=== PATIENT | female | born 1985 | race African-American/Black ===

== ENCOUNTER 2016-06-29 21:41 | Emergency (ER) | payer MEDICAID, OTHER ==
[~2016-06-29] VITALS: Ht 165.1 cm; Wt 72.6 kg
[~2016-06-29 21:41] MED LIST: ASPIR 8181 MG ORAL; BACLOFEN10 MG ORAL; BACTRIM-DS1 EA ORAL; BENADRYL25 MG PO; BENADRYL50 MG PO; CEPHALEXIN500 MG ORAL; CILOXAN3.5 GM OP; CIPRO500 MG PO; CORTISPORIN EAR10 M1 RIGHT EAR; CYCLOBENZAPRINE10 MG ORAL; FLOXIN OTIC10 DROP OT; HYDROCHLOROTH12.5 M2 ORAL; IBUPROFEN600 MG ORAL; IBUPROFEN800 MG ORAL; KEFLEX500 MG PO; NIFEDICAL XL30 MG PO; NORCO 5-325 TA1 EACH ORAL; PERCOCET 5-3251 EACH ORAL; PREDNISONE20 MG ORAL; PREDNISONE20 MG PO; PROCARDIA10 MG PO; QVAR 80MCG ORA1 PUFF INH; RANITIDINE HCL150 MG ORAL; RANITIDINE HCL150 MG PO; TRAMADOL HCL50 MG ORAL; VALIUM5 MG ORAL; VICODIN 5-5001 EACH PO
[2016-06-29] MEDS ORDERED: PERMETHRIN60 GM TOPIC (22:29)
[2016-06-29] MEDS ORDERED: HYDROCODON-ACE1 EA15 ORAL (22:29)
--- NOTE | 2016-06-29 22:30 | Emergency Room Report ---
History of Present Illness General Chief Complaint: Lower Back Pain or Injury Source: Patient Present Illness HPI This is a 31-year-old female who presents with 2 chief complaints. Her first complaint is back pain. This is a chronic problem. She currently taking ibuprofen for. She R. he has an MRI which showed spinal stenosis. She is awaiting authorization to see a specialist. Pain in her back as 8/10. No radiation. No incontinence of bowel or urine. No fever or chills. No trauma. Her second complaint is itching and rash. Worse at night. Localized to the upper back and upper chest and upper arm area. Been ongoing for last 2 weeks. She works as a home health care. [id number] medication including not helping. No new medicine. Allergies: Coded Allergies: No Known Allergies (Unverified , 04/06/12) Patient History Past Medical History: see triage record, old chart reviewed Past Surgical History: none Pertinent Family History: none Social History: Denies: smoking Last Menstrual Period: 06/13/16 Now: No Immunizations: other Reviewed Nursing Documentation: PMH: Agreed, PSxH: Agreed Nursing Documentation-PMH Hx Cardiac Problems: No Hx Hypertension: Yes Hx Pacemaker: No Hx Asthma: Yes Hx COPD: No Hx Diabetes: No Hx Cancer: No Hx Gastrointestinal Problems: No Hx Dialysis: No Hx Neurological Problems: No Hx Cerebrovascular Accident: No Hx Seizures: No Review of Systems Eye: Denies: blurred vision, eye pain ENT: Denies: ear pain, nose congestion, throat swelling Respiratory: Denies: cough, shortness of breath Cardiovascular: Denies: chest pain, palpitations Gastrointestinal: Denies: abdominal pain, diarrhea, nausea, vomiting Musculoskeletal: Reports: back pain, Denies: joint pain Skin: Reports: rash Neurological: Denies: headache, numbness Endocrine: Denies: increased thirst, increased urine Hematologic/Lymphatic: Denies: easy bruising All Other Systems: negative except mentioned in HPI Physical Exam Vital Signs Date Time Temp Pulse Resp B/P Pulse Ox O2 Delivery O2 Flow Rate FiO2 06/29/16 22:03 98.6 88 16 119/84 97 Room Air vitals heather Sp02 EP Interpretation: reviewed, normal General Appearance: well appearing, no apparent distress, alert Head: normocephalic, atraumatic Eyes: bilateral eye EOMI, bilateral eye PERRL ENT: hearing grossly normal, normal pharynx Neck: full range of motion, supple, no meningismus Respiratory: chest non-tender, lungs clear, normal breath sounds Cardiovascular #1: regular rate, rhythm, no murmur Gastrointestinal: normal bowel sounds, non tender, no mass, no organomegaly, no bruit, non-distended Musculoskeletal: back normal, gait/station normal, normal range of motion Neurologic: alert, oriented x3 Psychiatric: mood/affect normal Skin: warm/dry, rash - She has scattered prickly rash to back. no infection. Medical Decision Making Diagnostic Impression: Primary Impression: Back pain Qualified Codes: M54.5 - Low back pain Additional Impression: Dermatitis ER Course Patient with exacerbation of chronic lower back pain. No evidence of cauda equina syndrome, spinal epidural abscess, or neoplastic process. Or rash may be secondary to scabies, bedbugs, contact dermatitis name a few. No evidence of infection. We'll discharge home. Last Vital Signs Date Time Temp Pulse Resp B/P Pulse Ox O2 Delivery O2 Flow Rate FiO2 06/29/16 22:03 98.6 88 16 119/84 97 Room Air Status: improved Disposition: HOME, SELF-CARE Condition: Stable Scripts Permethrin* (ELIMITE*) 60 Gm Cream..g. 1 APPLIC TOPIC ONCE, #60 GM 0 Refills Apply cream from head to toe; leave on for 8-14 hours before washing off with water; may reapply in 1 week if live mites appear. Prov: SHASHI HYATT M.D. 06/29/16 Hydrocodone/Acetaminophen 5-325* (HYDROCODONE/ACETAMINOPHEN 5-325*) 1 Each Tablet 1 TAB ORAL Q6H Y for For Pain, #30 TAB 0 Refills Prov: SHASHI HYATT M.D. 06/29/16 Additional Instructions: Followup with your DrClara in 7 days. Return for increasing pain, fever, chills, or any concern. SHASHI HYATT M.D. Jun 29, 2016 22:30
[2016-06-29 22:49] VITALS: BP 119/84
== END 2016-06-29 22:50 | disposition home or self-care (01) ==
LOC: EMR 22:19
DX: M54.5 Low back pain (principal); L30.9 Dermatitis, unspecified; J45.909 Unspecified asthma, uncomplicated; I10 Essential (primary) hypertension
CPT/HCPCS: 99282

== ENCOUNTER 2016-08-06 15:42 | Emergency (ER) | payer OTHER ==
[~2016-08-06] VITALS: Ht 165.1 cm; Wt 83.5 kg
[~2016-08-06 15:42] MED LIST changes: +HYDROCODON-ACE1 EA15 ORAL; +PERMETHRIN60 GM TOPIC
[2016-08-06 16:06] VITALS: BP 119/86
--- NOTE | 2016-08-06 16:08 | Emergency Room Report ---
History of Present Illness General Chief Complaint: Skin Rash/Abscess Source: Patient Present Illness HPI The patient is a 31-year-old female presenting for total body itching. The patient was seen in this emergency department one month prior and treated with permethrin which the patient states did not help. Patient then saw her primary care doctor yesterday who also prescribed permethrin and the patient states that the symptoms are continuing. Patient describes itching of the arms, legs, chest, and back. The patient states that there are others that live in her house who do not have the symptoms. The patient did not do a deep cleaning of her house. Allergies: Coded Allergies: No Known Allergies (Unverified , 04/06/12) Patient History Past Medical History: see triage record Pertinent Family History: none Last Menstrual Period: 07/08/16 Reviewed Nursing Documentation: PMH: Agreed, PSxH: Agreed Nursing Documentation-PMH Past Medical History: No History, Except For Hx Cardiac Problems: No Hx Hypertension: Yes Hx Pacemaker: No Hx Asthma: Yes Hx COPD: No Hx Diabetes: No Hx Cancer: No Hx Gastrointestinal Problems: No Hx Dialysis: No Hx Neurological Problems: No Hx Cerebrovascular Accident: No Hx Seizures: No Review of Systems All Other Systems: negative except mentioned in HPI Physical Exam Vital Signs Date Time Temp Pulse Resp B/P Pulse Ox O2 Delivery O2 Flow Rate FiO2 08/06/16 15:59 98.6 92 14 123/91 95 Room Air Sp02 EP Interpretation: reviewed, normal General Appearance: no apparent distress, alert, GCS 15, non-toxic Head: normocephalic, atraumatic Eyes: bilateral eye PERRL, bilateral eye normal inspection ENT: hearing grossly normal, normal pharynx, no angioedema, normal voice Neck: full range of motion, supple/symm/no masses Respiratory: chest non-tender, lungs clear, normal breath sounds, speaking full sentences Cardiovascular #1: regular rate, rhythm, no edema Musculoskeletal: back normal, gait/station normal, normal range of motion, non- tender Neurologic: alert, oriented x3, responsive, motor strength/tone normal, sensory intact, speech normal Psychiatric: normal inspection Skin: normal color, warm/dry, well hydrated, rash - There are scattered erythematous papules of bilateral arms, abdomen, back, and legs. No burrowing. No lesions in the web spaces. Nontender Lymphatic: no adenopathy Medical Decision Making PA Attestation Dr. Orosco is my supervising physician. Patient management was discussed with my supervising physician Diagnostic Impression: Primary Impression: Bedbug bite ER Course The patient is a 30-year-old female presenting with total body itching Ddx considered include but not limited to insect bite, contact dermatitis, eczema, cellulitis PE: vitals WNL. NAD There are scattered erythematous papules of bilateral arms, abdomen, back, and legs. No burrowing. No lesions in the web spaces. Nontender. The patient is given Benadryl IM with good relief of itching The patient has one refill of permethrin from her PMD and states that a referral for dermatology is pending. The patient to be discharged home with a prescription for Keflex and Benadryl Last Vital Signs Date Time Temp Pulse Resp B/P Pulse Ox O2 Delivery O2 Flow Rate FiO2 08/06/16 16:06 98.1 79 14 119/86 98 Room Air Status: improved Disposition: HOME, SELF-CARE Condition: Improved Scripts Cephalexin* (KEFLEX*) 500 Mg Capsule 500 MG ORAL EVERY 12 HOURS, #14 CAP 0 Refills Prov: TERRAUDELAN,DESIREE P.A. 08/06/16 Diphenhydramine HCl (Benadryl) 25 Mg Capsule 25 MG PO Q6HR, #20 CAP Prov: TERZIAN,DESIREE P.A. 08/06/16 SAIMAZIAN,DESIREE P.A. Aug 06, 2016 16:08
[2016-08-06] MEDS ORDERED: DiphenhydrAMINE 50mg/ml Inj IM ONE (16:15)
[2016-08-06] MEDS ORDERED: BENADRYL25 M3 PO (16:36)
[2016-08-06] MEDS ORDERED: CEPHALEXIN500 MG ORAL (16:36)
[2016-08-06 16:40] VITALS: BP 119/86
== END 2016-08-06 16:40 | disposition home or self-care (01) ==
LOC: EMR 16:08
DX: S40.862A Insect bite (nonvenomous) of left upper arm, initial encounter (principal); S40.861A Insect bite (nonvenomous) of right upper arm, initial encounter; S30.861A Insect bite (nonvenomous) of abdominal wall, initial encounter; S30.860A Insect bite (nonvenomous) of lower back and pelvis, initial encounter; S80.869A Insect bite (nonvenomous), unspecified lower leg, initial encounter; W57.XXXA Bitten or stung by nonvenomous insect and other nonvenomous arthropods, initial encounter; Y92.9 Unspecified place or not applicable; J45.909 Unspecified asthma, uncomplicated; I10 Essential (primary) hypertension
CPT/HCPCS: 96372; 99284; J1200

== ENCOUNTER 2016-10-17 17:43 | Emergency (ER) | payer OTHER ==
[~2016-10-17] VITALS: Ht 165.1 cm; Wt 78.9 kg
[~2016-10-17 17:43] MED LIST changes: +BENADRYL25 M3 PO
[2016-10-17] MEDS ORDERED: Ketorolac 60mg Inj IM ONE (18:15)
[2016-10-17 18:25] LABS: APPEARANCE,URINE SLIGHTLY CLOUDY; KETONES,URINE 2+ (NEGATIVE); LEUKOCYTE ESTERASE ,URINE 3+ (NEGATIVE); NITRITE,URINE NEGATIVE (NEGATIVE); PH,URINE 7 (4.5-8.0); PROTEIN,URINE NEGATIVE (NEGATIVE); UROBILINOGEN,URINE NORMAL MG/DL (0.0-1.0)
[2016-10-17 18:33] LABS: BACTERIA,URINE MODERATE /HPF; SQUAMOUS EPITHELIAL CELL,UR MANY /LPF (NONE/OCC); TRICHOMONAS,URINE OCCASIONAL /HPF
[2016-10-17] MEDS ORDERED: BENTYL10 MG ORAL (18:41)
[2016-10-17] MEDS ORDERED: KEFLEX500 MG ORAL (18:43)
[2016-10-17] MEDS ORDERED: Cephalexin 500mg cap ORAL ONE (18:45)
[2016-10-17 18:55] VITALS: BP 145/96
[2016-10-17 18:57] VITALS: BP 145/96
--- NOTE | 2016-10-17 20:11 | Emergency Room Report ---
History of Present Illness General Chief Complaint: Abdominal Pain Source: Patient Present Illness HPI Patient 31-year-old female who presented after increased lower abdominal pain patient was noted to have gradual onset of symptoms. She reported having increased pain since approximately one month ago. This reported having increased pain with her menses. She had not been vomiting. She had no diarrhea. She denied any vaginal discharge. Allergies: Coded Allergies: No Known Allergies (Unverified , 04/06/12) Patient History Past Medical History: see triage record Last Menstrual Period: 09/30/16 Reviewed Nursing Documentation: PMH: Agreed, PSxH: Agreed Nursing Documentation-PMH Past Medical History: No History, Except For Hx Cardiac Problems: No Hx Hypertension: Yes Hx Pacemaker: No Hx Asthma: Yes Hx COPD: No Hx Diabetes: No Hx Cancer: No Hx Gastrointestinal Problems: No Hx Dialysis: No Hx Neurological Problems: No Hx Cerebrovascular Accident: No Hx Seizures: No Review of Systems All Other Systems: negative except mentioned in HPI Physical Exam Vital Signs Date Time Temp Pulse Resp B/P Pulse Ox O2 Delivery O2 Flow Rate FiO2 10/17/16 17:48 98.1 78 16 167/115 100 Room Air General Appearance: well appearing, no apparent distress, alert, GCS 15 Head: normocephalic, atraumatic ENT: hearing grossly normal, normal voice Neck: full range of motion, supple Respiratory: no respiratory distress, speaking full sentences Cardiovascular #1: normal inspection Gastrointestinal: normal inspection, normal bowel sounds, non tender, soft, no mass Musculoskeletal: normal inspection, no calf tenderness Neurologic: normal inspection, alert, responsive, normal gait Psychiatric: mood/affect normal Skin: no rash Medical Decision Making Diagnostic Impression: Primary Impression: UTI (lower urinary tract infection) ER Course Patient presented for abdominal pain. Differential diagnoses included ischemic bowel, appendicitis, perforated viscus, abdominal aortic aneurysm, inferior myocardial infarction, viral gastroenteritis Patient's benign exam and does not appear to require any further imaging or laboratory testing at this time. I urinalysis showed evidence of urinary tract infection. Patient was noted to have no evidence of . Patient was given prescription for antibiotics.The patient is advised to follow up with primary care doctor in 1-2 days. Patient is advised to return if any worsening condition or if any changes in status that are concerning. Labs Test 10/17/16 14:13 Urine Color Pale yellow Urine Appearance Slightly cloudy Urine pH 7 (4.5-8.0) Urine Specific [place] 1.010 (1.005-1.035) Urine Protein Negative (NEGATIVE) Urine Glucose (UA) Negative (NEGATIVE) Urine Ketones 2+ (NEGATIVE) Urine Occult Blood 1+ (NEGATIVE) Urine Nitrite Negative (NEGATIVE) Urine Bilirubin Negative (NEGATIVE) Urine Urobilinogen Normal MG/DL (0.0-1.0) Urine Leukocyte Esterase 3+ (NEGATIVE) Urine RBC 2-4 /HPF (0 - 2) Urine WBC 5-10 /HPF (0 - 2) Urine Squamous Epithelial Cells Many /LPF (NONE/OCC) Urine Bacteria Moderate /HPF (NONE) Urine Trichomonas Occasional /HPF (NONE) Urine HCG, Qualitative Negative Urine Opiates Screen Negative (NEGATIVE) Urine Barbiturates Screen Negative (NEGATIVE) Phencyclidine (PCP) Screen Negative (NEGATIVE) Urine Amphetamines Screen Negative (NEGATIVE) Urine Benzodiazepines Screen Negative (NEGATIVE) Urine Cocaine Screen Negative (NEGATIVE) Urine Marijuana (THC) Screen Positive (NEGATIVE) Last Vital Signs Date Time Temp Pulse Resp B/P Pulse Ox O2 Delivery O2 Flow Rate FiO2 10/17/16 18:57 98.3 74 18 145/96 98 Room Air Disposition: HOME, SELF-CARE Condition: Stable Scripts Cephalexin* (KEFLEX*) 500 Mg Capsule 500 MG ORAL Q6H, #28 CAP 0 Refills Prov: Immanuel Corrigan 10/17/16 Dicyclomine Hcl* (BENTYL*) 10 Mg Capsule 10 MG ORAL FOUR TIMES A DAY, #20 CAP Prov: Immanuel Corrigan 10/17/16 Referrals: [facility],REFERRING (PCP) Patient Instructions: Urinary Tract Infection, Abdominal Pain, Adult Immanuel Corrigan October 17, 2016 20:11
== END 2016-10-17 18:57 | disposition home or self-care (01) ==
LOC: EMR 18:12
DX: N39.0 Urinary tract infection, site not specified (principal); I10 Essential (primary) hypertension; J45.909 Unspecified asthma, uncomplicated
CPT/HCPCS: 80300; 81003; 81025; 87086; 96372; 99284

== ENCOUNTER 2016-10-23 02:27 | Emergency (ER) | payer OTHER ==
[~2016-10-23] VITALS: Ht 165.1 cm; Wt 78.9 kg
[~2016-10-23 02:27] MED LIST changes: +BENTYL10 MG ORAL; +KEFLEX500 MG ORAL
[2016-10-23 02:35] VITALS: BP 130/74
[2016-10-23] MEDS ORDERED: HYDROmorphone 1mg/ml Carpuject IM ONE (03:00)
[2016-10-23] MEDS ORDERED: HYDROCODON-ACE1 EA15 ORAL (03:07)
[2016-10-23] MEDS ORDERED: IBUPROFEN600 MG ORAL (03:07)
--- NOTE | 2016-10-23 03:08 | Emergency Room Report ---
History of Present Illness General Chief Complaint: Back Pain-No Injury Source: Patient, Medical Record Present Illness HPI Is a 31-year-old female with history of back pain. She has an MRI that showed stenosis. She seen a pain specialist and his prescribe oral medication and Lidoderm patches. Those are not helping. She presents with acute exacerbation of her back pain. Onset yesterday. Worse tonight. Said is very stiff. Worse with movement. Pain is 8/10. No incontinence of urine or bowel no trauma. No fever or chills. No anesthesia. Allergies: Coded Allergies: No Known Allergies (Unverified , 04/06/12) Patient History Past Medical History: see triage record, old chart reviewed Past Surgical History: other Pertinent Family History: none Social History: Denies: smoking Last Menstrual Period: last month Now: No Immunizations: other Reviewed Nursing Documentation: PMH: Agreed, PSxH: Agreed Nursing Documentation-PMH Hx Cardiac Problems: No Hx Hypertension: Yes Hx Pacemaker: No Hx Asthma: Yes Hx COPD: No Hx Diabetes: No Hx Cancer: No Hx Gastrointestinal Problems: No Hx Dialysis: No Hx Neurological Problems: Yes - PINCHED NERVE Hx Cerebrovascular Accident: No Hx Seizures: No Review of Systems Eye: Denies: blurred vision, eye pain ENT: Denies: ear pain, nose congestion, throat swelling Respiratory: Denies: cough, shortness of breath Cardiovascular: Denies: chest pain, palpitations Gastrointestinal: Denies: abdominal pain, diarrhea, nausea, vomiting Musculoskeletal: Reports: back pain, Denies: joint pain Skin: Denies: rash Neurological: Denies: headache, numbness Endocrine: Denies: increased thirst, increased urine Hematologic/Lymphatic: Denies: easy bruising All Other Systems: negative except mentioned in HPI Physical Exam Vital Signs Date Time Temp Pulse Resp B/P Pulse Ox O2 Delivery O2 Flow Rate FiO2 10/23/16 02:30 98.1 83 16 132/72 100 Room Air vitals normal Sp02 EP Interpretation: reviewed, normal General Appearance: well appearing, no apparent distress, alert Head: normocephalic, atraumatic Eyes: bilateral eye EOMI, bilateral eye PERRL ENT: hearing grossly normal, normal pharynx Neck: full range of motion, supple, no meningismus Respiratory: chest non-tender, lungs clear, normal breath sounds Cardiovascular #1: regular rate, rhythm, no murmur Gastrointestinal: normal bowel sounds, non tender, no mass, no organomegaly, no bruit, non-distended Musculoskeletal: gait/station normal, normal range of motion, tender - Diffuse tenderness over the paraspinous muscle the lower back Psychiatric: mood/affect normal Skin: warm/dry Medical Decision Making Diagnostic Impression: Primary Impression: Back pain Qualified Codes: M54.5 - Low back pain ER Course Patient presents with exacerbation of chronic lower back pain. No evidence of cauda equina syndrome, spinal after abscess or neoplastic process. We'll discharge home. Last Vital Signs Date Time Temp Pulse Resp B/P Pulse Ox O2 Delivery O2 Flow Rate FiO2 10/23/16 02:30 98.1 83 16 132/72 100 Room Air Status: improved Disposition: HOME, SELF-CARE Condition: Stable Scripts Ibuprofen* (MOTRIN*) 600 Mg Tablet 600 MG ORAL THREE TIMES A DAY, #30 TAB 0 Refills Prov: SHASHI HYATT M.D. 10/23/16 Hydrocodone/Acetaminophen 5-325* (HYDROCODONE/ACETAMINOPHEN 5-325*) 1 Each Tablet 1 TAB ORAL Q6H Y for For Pain, #20 TAB 0 Refills Prov: SHASHI HYATT M.D. 10/23/16 Patient Instructions: Back Pain, Adult Additional Instructions: Followup with your Dr. in 7 days. No heavy lifting. Return if worse. SHASHI HYATT M.D. October 23, 2016 03:08
[2016-10-23 03:15] VITALS: BP 128/76
== END 2016-10-23 03:15 | disposition home or self-care (01) ==
LOC: EMR 03:00
DX: M54.5 Low back pain (principal); I10 Essential (primary) hypertension; J45.909 Unspecified asthma, uncomplicated; G89.29 Other chronic pain; M48.00 Spinal stenosis, site unspecified
CPT/HCPCS: 96372; 99284; J1170

== ENCOUNTER 2017-03-10 00:48 | Emergency (ER) | payer OTHER ==
[~2017-03-10] VITALS: Ht 165.1 cm; Wt 68.0 kg
[2017-03-10 01:07] VITALS: BP 126/88
[2017-03-10] MEDS ORDERED: GABAPENTIN300 MG ORAL (01:38)
[2017-03-10] MEDS ORDERED: HYDROCODON-ACE1 EA15 ORAL (01:38)
[2017-03-10] MEDS ORDERED: PREDNISONE20 MG ORAL (01:38)
--- NOTE | 2017-03-10 01:39 | Emergency Room Report ---
History of Present Illness General Chief Complaint: Pain Source: Patient Present Illness HPI Is a 31-year-old female with history of chronic back pain. She presents with increasing back pain in sharp and numbness down her left leg. She seen a pain management in the past and was placed on gabapentin. She said that did not help. No trauma. No fever or chills. Pain is 9/10. Worse with sitting and prolonged walking. Pain rated her left leg. Complained of numbness. No incontinence of bowel or urine. No trauma. Allergies: Coded Allergies: No Known Allergies (Unverified , 04/06/12) Patient History Past Medical History: see triage record, old chart reviewed Past Surgical History: other Pertinent Family History: none Social History: Denies: drug use Last Menstrual Period: 02/14/17 Now: No : 2 Para: 2 Immunizations: other Reviewed Nursing Documentation: PMH: Agreed, PSxH: Agreed Nursing Documentation-PMH Hx Cardiac Problems: No Hx Hypertension: Yes Hx Pacemaker: No Hx Asthma: Yes Hx COPD: No Hx Diabetes: No Hx Cancer: No Hx Gastrointestinal Problems: No Hx Dialysis: No Hx Neurological Problems: Yes - PINCHED NERVE Hx Cerebrovascular Accident: No Hx Seizures: No Review of Systems Eye: Denies: eye pain, blurred vision ENT: Denies: ear pain, nose congestion, throat swelling Respiratory: Denies: cough, shortness of breath Cardiovascular: Denies: chest pain, palpitations Gastrointestinal: Denies: abdominal pain, diarrhea, nausea, vomiting Musculoskeletal: Reports: back pain, Denies: joint pain Skin: Denies: rash Neurological: Denies: headache, numbness Endocrine: Denies: increased thirst, increased urine Hematologic/Lymphatic: Denies: easy bruising All Other Systems: negative except mentioned in HPI Physical Exam Vital Signs Date Time Temp Pulse Resp B/P (MAP) Pulse Ox O2 Delivery O2 Flow Rate FiO2 03/10/17 00:53 98.2 88 18 126/88 96 Room Air vitals normal Sp02 EP Interpretation: reviewed, normal General Appearance: well appearing, no apparent distress, alert Head: normocephalic, atraumatic Eyes: bilateral eye PERRL, bilateral eye EOMI ENT: hearing grossly normal, normal pharynx Neck: full range of motion, supple, no meningismus Respiratory: chest non-tender, lungs clear, normal breath sounds Cardiovascular #1: regular rate, rhythm, no murmur Gastrointestinal: normal bowel sounds, non tender, no mass, no organomegaly, no bruit, non-distended Musculoskeletal: back normal - Tenderness to the lower back. No step-off. No anesthesia., gait/station normal, normal range of motion Neurologic: alert, oriented x3 Psychiatric: mood/affect normal Skin: warm/dry Medical Decision Making Diagnostic Impression: Primary Impression: Back pain Qualified Codes: M54.42 - Lumbago with sciatica, left side ER Course Patient presents with lower back pain with sciatica. No evidence of cauda equina syndrome, spinal epidural abscess or neoplastic process. We'll discharge home. Last Vital Signs Date Time Temp Pulse Resp B/P (MAP) Pulse Ox O2 Delivery O2 Flow Rate FiO2 03/10/17 01:07 98.2 88 18 126/88 96 Room Air Status: improved Disposition: HOME, SELF-CARE Condition: Stable Scripts Gabapentin* (GABAPENTIN*) 300 Mg Capsule 300 MG ORAL BEDTIME, #30 CAP Prov: SHASHI HYATT M.D. 03/10/17 Prednisone* (PREDNISONE*) 20 Mg Tablet 60 MG ORAL DAILY, #15 TAB Prov: SHASHI HYATT M.D. 03/10/17 Hydrocodone/Acetaminophen 5-325* (HYDROCODONE/ACETAMINOPHEN 5-325*) 1 Each Tablet 1 TAB ORAL Q6H Y for For Pain, #30 TAB 0 Refills Prov: SHASHI HYATT M.D. 03/10/17 Referrals: [facility],REFERRING (PCP) Additional Instructions: Followup with your DrClara in 7 days. Recommend outpatient MRI of the back if not better. You may benefit from physical therapy and consultation with a pain management. Return if symptom worsen. SHASHI HYATT M.D. Mar 10, 2017 01:39
[2017-03-10] MEDS ORDERED: HYDROmorphone 1mg/ml Carpuject IM ONE (01:45)
[2017-03-10 01:48] VITALS: BP 126/88
== END 2017-03-10 01:49 | disposition home or self-care (01) ==
LOC: EMR 01:01
DX: M54.42 Lumbago with sciatica, left side (principal); I10 Essential (primary) hypertension; J45.909 Unspecified asthma, uncomplicated
CPT/HCPCS: 96372; 99284; J1170

== ENCOUNTER 2017-05-30 17:15 | Emergency (ER) | payer MEDICAID, OTHER ==
[~2017-05-30] VITALS: Ht 165.1 cm; Wt 68.0 kg
[~2017-05-30 17:15] MED LIST changes: +GABAPENTIN300 MG ORAL
[2017-05-30 17:45] VITALS: BP 149/99
[2017-05-30] MEDS ORDERED: Ketorolac 60mg Inj IM ONE (18:15)
[2017-05-30] MEDS ORDERED: Norco 5mg/325mg tab ORAL ONE (18:15)
[2017-05-30] MEDS ORDERED: LIDODERM700 M1 TOPIC (19:00)
[2017-05-30] MEDS ORDERED: ROBAXIN-750750 MG PO (19:00)
--- NOTE | 2017-05-30 19:00 | Emergency Room Report ---
History of Present Illness General Chief Complaint: Back Pain-No Injury Source: Patient, Medical Record Present Illness HPI 32 YO Female presents to the ED c/o Left -sided low back pain 10/10 in severity that shoots down the left leg x 3 day(s). hx of pain with similar character has dx of lumbar stenosis. pt. reports she does not have a primary physician, and never had MRI which she was referred for several times. pt. denies recent spinal procedures. denies new trauma or fall. denies fevers, chills, or hx of cancer. reports sitting , walking, and twisting aggravates her pain. denies abdominal pain, urinary frequency, or hematuria. Denies numbness tingling or loss of sensation or gross motor movements of the extremities, incontinence of bowel or bladder. Denies CP, Palpitations, LOC, AMS, dizziness, Changes in Vision, Sensation, paresthesias, or a sudden severe headache. Allergies: Coded Allergies: No Known Allergies (Unverified , 04/06/12) Patient History Past Medical History: see triage record, other - chronic back pain with stenosis Past Surgical History: none, other Last Menstrual Period: 05/28/17 Reviewed Nursing Documentation: PMH: Agreed, PSxH: Agreed Nursing Documentation-PMH Past Medical History: No History, Except For Hx Cardiac Problems: No Hx Hypertension: Yes Hx Pacemaker: No Hx Asthma: Yes Hx COPD: No Hx Diabetes: No Hx Cancer: No Hx Gastrointestinal Problems: No Hx Dialysis: No Hx Neurological Problems: Yes - PINCHED NERVE Hx Cerebrovascular Accident: No Hx Seizures: No Review of Systems All Other Systems: negative except mentioned in HPI Physical Exam Vital Signs Date Time Temp Pulse Resp B/P (MAP) Pulse Ox O2 Delivery O2 Flow Rate FiO2 05/30/17 17:35 98.2 80 18 149/99 99 Room Air Sp02 EP Interpretation: reviewed, normal General Appearance: no apparent distress, alert, GCS 15, non-toxic Head: normocephalic, atraumatic Eyes: bilateral eye normal inspection, bilateral eye PERRL ENT: hearing grossly normal, normal voice Neck: full range of motion Respiratory: lungs clear, normal breath sounds, speaking full sentences Cardiovascular #1: regular rate, rhythm Cardiovascular #2: 2+ dorsalis pedis (R), 2+ dorsalis pedis (L) Rectal: deferred Genitourinary: normal inspection, no CVA tenderness Musculoskeletal: back normal, gait/station normal, normal range of motion, tender - Left lumbar paraspinal TTP, and left upper gluteal TTP, no spinous process ttp. pt ambulatory. Neurologic: alert, oriented x3, responsive, motor strength/tone normal, sensory intact, normal gait, speech normal, grossly normal Skin: normal color, no rash, warm/dry, well hydrated Medical Decision Making PA Attestation Dr. Munson is my supervising Physician whom patient management has been discussed with. Diagnostic Impression: Primary Impression: Chronic pain Qualified Codes: G89.4 - Chronic pain syndrome Additional Impression: Sciatica of left side ER Course 32 YO Female presents to the ED c/o Left -sided low back pain 10/10 in severity that shoots down the left leg x 3 day(s). hx of pain with similar character has dx of lumbar stenosis. pt. reports she does not have a primary physician, and never had MRI which she was referred for several times. pt. denies recent spinal procedures. denies new trauma or fall. denies fevers, chills, or hx of cancer. reports sitting , walking, and twisting aggravates her pain. denies abdominal pain, urinary frequency, or hematuria. Denies numbness tingling or loss of sensation or gross motor movements of the extremities, incontinence of bowel or bladder. Denies CP, Palpitations, LOC, AMS, dizziness, Changes in Vision, Sensation, paresthesias, or a sudden severe headache. Ddx considered but are not limited to Fracture, dislocation, contusion, epidural abscess, Sprain/Strain/Spasm Vital signs: are WNL, pt. is afebrile H&PE are most consistent with sciatica no neurological deficits on PE. Pt. unable to tolerate straight leg raise. ORDERS: X-ray not required at this time, no spinous process tenderness ED INTERVENTIONS: -- IM Toradol 20mg. -[place] PO DISCHARGE: At this time pt. is stable for d/c to home. Will provide printed patient care instructions, and any necessary prescriptions. Care plan and follow up instructions have been discussed with the patient prior to discharge. Last Vital Signs Date Time Temp Pulse Resp B/P (MAP) Pulse Ox O2 Delivery O2 Flow Rate FiO2 05/30/17 17:45 98.2 78 18 149/99 99 Room Air Disposition: HOME, SELF-CARE Condition: Stable Scripts Lidocaine (Lidoderm) 1 Each Adh..patch 1 PATCH TOPIC DAILY, #25 PATCH 0 Refills Patch(es) may remain in place for up to 12 hours in any 24-hour period. Prov: Faith Carlson 05/30/17 Methocarbamol* (ROBAXIN-750*) 750 Mg Tablet 750 MG PO QID, #30 TAB 0 Refills Prov: Faith Carlson 05/30/17 Referrals: [facility],REFERRING (PCP) Patient Instructions: Back Pain, Adult, Sciatica Additional Instructions: Take medications as directed. Follow up with a Primary Care Provider in 3-5 days, even if your symptoms have resolved. --Please review list of primary care clinics, if you do not already have a primary care provider Return sooner to ED if new symptoms occur, or current symptoms become worse. Do not drink alcohol, drive, or operate heavy machinery while taking Muscle Relaxers as this may cause drowsiness. - Please note that this Emergency Department Report was dictated using [employer] technology software, occasionally this can lead to erroneous entry secondary to interpretation by the dictation equipment. Faith Carlson May 30, 2017 19:00
[2017-05-30 19:35] VITALS: BP 149/99
== END 2017-05-30 19:35 | disposition home or self-care (01) ==
LOC: EMR 17:59
DX: M54.42 Lumbago with sciatica, left side (principal); G89.29 Other chronic pain; I10 Essential (primary) hypertension; J45.909 Unspecified asthma, uncomplicated
CPT/HCPCS: 96372; 99283

== ENCOUNTER 2018-04-02 02:43 | Emergency (ER) | payer MEDICAID ==
[~2018-04-02] VITALS: Ht 165.1 cm; Wt 63.5 kg
[~2018-04-02 02:43] MED LIST changes: +LIDODERM700 M1 TOPIC; +ROBAXIN-750750 MG PO
[2018-04-02] MEDS ORDERED: IBUPROFEN600 MG ORAL (03:07)
[2018-04-02] MEDS ORDERED: CLINDAMYCIN HC300 MG ORAL (03:07)
[2018-04-02] MEDS ORDERED: HYDROCODON-ACE1 EA15 ORAL (03:07)
--- NOTE | 2018-04-02 03:08 | Emergency Room Report ---
History of Present Illness General Chief Complaint: Upper Extremity Injury Source: Patient Present Illness HPI This is a 32-year-old female with no significant past medical history. She is left-hand dominant. She presents with chief complaint of left hand pain. About 3 days ago she noticed some red bumps on her hand. It was itchy. Now redness increasing in tracking up her forearm. Pain is 10 out of 10. Worse with movement. No trauma. No fever chills. She also had some bumps on her right arm and back but that went away. Denies any other complaint. Did not see anything biting her. No drainage. Allergies: Coded Allergies: No Known Allergies (Unverified , 04/06/12) Patient History Past Medical History: see triage record, old chart reviewed Past Surgical History: none Pertinent Family History: none Social History: Denies: smoking Last Menstrual Period: 03/13/18 Now: No : 2 Para: 2 Immunizations: other Reviewed Nursing Documentation: PMH: Agreed; PSxH: Agreed Nursing Documentation-PMH Hx Cardiac Problems: No Hx Hypertension: Yes Hx Pacemaker: No Hx Asthma: Yes Hx COPD: No Hx Diabetes: No Hx Cancer: No Hx Gastrointestinal Problems: No Hx Dialysis: No Hx Neurological Problems: Yes - PINCHED NERVE Hx Cerebrovascular Accident: No Hx Seizures: No Review of Systems Eye: Denies: eye pain, blurred vision ENT: Denies: ear pain, nose congestion, throat swelling Respiratory: Denies: cough, shortness of breath Cardiovascular: Denies: chest pain, palpitations Gastrointestinal: Denies: abdominal pain, diarrhea, nausea, vomiting Musculoskeletal: Reports: joint pain, muscle pain; Denies: back pain Skin: Denies: rash Neurological: Denies: headache, numbness Endocrine: Denies: increased thirst, increased urine Hematologic/Lymphatic: Denies: easy bruising All Other Systems: negative except mentioned in HPI Physical Exam Vital Signs Date Time Temp Pulse Resp B/P (MAP) Pulse Ox O2 Delivery O2 Flow Rate FiO2 04/02/18 02:47 98.4 77 18 149/89 94 Room Air 98.4 vitals with high blood pressure Sp02 EP Interpretation: reviewed, normal General Appearance: well appearing, no apparent distress, alert Head: normocephalic, atraumatic Eyes: bilateral eye PERRL, bilateral eye EOMI ENT: hearing grossly normal, normal pharynx Neck: full range of motion, supple, no meningismus Respiratory: chest non-tender, lungs clear, normal breath sounds Cardiovascular #1: regular rate, rhythm, no murmur Gastrointestinal: normal bowel sounds, non tender, no mass, no organomegaly, no bruit, non-distended Musculoskeletal: back normal, gait/station normal, normal range of motion, other - Left hand: There are 3 areas of erythema with central 1 mm blister. No fluctuant area. Full range of motion of the wrist, MCP joints of each fingers. This area of erythema localized over the dorsum of the hand over the second and third metacarpal bone. Neurologic: alert, oriented x3 Psychiatric: mood/affect normal Skin: warm/dry Medical Decision Making Diagnostic Impression: Primary Impression: Cellulitis of hand without finger or thumb, left ER Course Patient with cellulitis with lymphatic spread. No evidence of any septic joint. No evidence of necrotizing fasciitis or abscess seen. Most likely MRSA in nature. Dose of antibiotics given here. Last Vital Signs Date Time Temp Pulse Resp B/P (MAP) Pulse Ox O2 Delivery O2 Flow Rate FiO2 04/02/18 02:47 98.4 77 18 149/89 94 Room Air 98.4 Status: improved Disposition: HOME, SELF-CARE Condition: Stable Scripts Ibuprofen* (MOTRIN*) 600 Mg Tablet 600 MG ORAL THREE TIMES A DAY, #30 TAB 0 Refills Prov: Matt Mendez MD 04/02/18 Hydrocodone/Acetaminophen 5-325* (HYDROCODONE/ACETAMINOPHEN 5-325*) 1 Each Tablet 1 TAB ORAL Q6H PRN for For Pain, #15 TAB 0 Refills Prov: Matt Mendez MD 04/02/18 Clindamycin Hcl (CLINDAMYCIN HCL) 300 Mg Capsule 300 MG ORAL THREE TIMES A DAY, #21 CAP Prov: Matt Mendez MD 04/02/18 Additional Instructions: Elevate hand. Follow-up with your Dr. in 2 to 3 days for recheck. Return if worse. Matt Mendez MD Apr 02, 2018 03:08
[2018-04-02 03:10] VITALS: BP 149/89
[2018-04-02] MEDS ORDERED: Clindamycin 150mg cap ORAL ONE (03:15)
[2018-04-02] MEDS ORDERED: Norco 5mg/325mg tab ORAL ONE (03:15)
== END 2018-04-02 03:30 | disposition home or self-care (01) ==
LOC: EMR 03:17
DX: L03.114 Cellulitis of left upper limb (principal); I10 Essential (primary) hypertension; J45.909 Unspecified asthma, uncomplicated
CPT/HCPCS: 99283

== ENCOUNTER 2019-01-22 10:19 | Emergency (ER) | payer MEDICAID ==
[~2019-01-22] VITALS: Ht 165.1 cm; Wt 75.3 kg
[~2019-01-22 10:19] MED LIST changes: +CLINDAMYCIN HC300 MG ORAL
--- NOTE | 2019-01-22 10:35 | NUR ---
ED Nurse Note: Pt came in from home due to lower back pain that radiates downward x 1 week, hx of Sciatic nerve pain. Pt also c/o L side spasm, fell on 01/14/19 because of spasm. No LOC or head trauma. Pt has hx of chronic pain but has not been able to go to pain management. Pain 01/20 [place]. AOx4, VSS [place]. Will cont to monitor.
[2019-01-22] MEDS ORDERED: HYDROcodone/Acetamin 5/325 tab ORAL ONE (10:45)
[2019-01-22] MEDS ORDERED: Ketorolac 30mg Inj IM ONE (10:45)
[2019-01-22 10:52] VITALS: BP 137/95
[2019-01-22] MEDS ORDERED: LIDODERM700 M1 TOPIC ×3 (11:06→13:07)
[2019-01-22] MEDS ORDERED: NORCO 5-325 TA1 EACH ORAL ×3 (11:06→13:07)
[2019-01-22 11:10] VITALS: BP 137/95
--- NOTE | 2019-01-22 11:10 | NUR ---
ER DISCHARGE NOTE: Patient is cleared to be discharged per ERMD, pt is aox4, on room air, with stable vital signs. pt was given dc and prescription instructions, pt was able to verbalize understanding, pt id band removed. pt is able to ambulate with steady gait. pt took all belongings.
--- NOTE | 2019-01-22 11:16 | Emergency Room Report ---
History of Present Illness General Chief Complaint: Back Pain-No Injury Source: Patient Present Illness HPI 33-year-old female presents ED for evaluation. Complaining of left-sided back pain. States that one week ago she had a mechanical trip and fall. States she is having persistent pain to her left lower back. History of sciatica. Says she is been seen by pain management. Currently awaiting referral to pain management. Pain is throbbing, 8 out of 10, radiating down the left leg. Denies weakness. Denies bowel or bladder incontinence. No other aggravating relieving factors. Denies any other associated symptoms Allergies: Coded Allergies: No Known Allergies (Unverified , 04/06/12) Patient History Past Medical History: HTN, asthma, other - sciatica Past Surgical History: none Pertinent Family History: none Social History: Denies: smoking, alcohol use, drug use Now: No Immunizations: UTD Reviewed Nursing Documentation: PMH: Agreed; PSxH: Agreed Nursing Documentation-PMH Past Medical History: No History, Except For Hx Cardiac Problems: No Hx Hypertension: Yes Hx Pacemaker: No Hx Asthma: Yes Hx COPD: No Hx Diabetes: No Hx Cancer: No Hx Gastrointestinal Problems: No Hx Dialysis: No Hx Neurological Problems: Yes - PINCHED NERVE Hx Cerebrovascular Accident: No Hx Seizures: No Review of Systems All Other Systems: negative except mentioned in HPI Physical Exam Vital Signs Date Time Temp Pulse Resp B/P (MAP) Pulse Ox O2 Delivery O2 Flow Rate FiO2 01/22/19 10:25 98.4 80 16 134/100 (111) 99 Room Air Sp02 EP Interpretation: reviewed, normal General Appearance: no apparent distress, alert, GCS 15, non-toxic Head: normocephalic Eyes: bilateral eye normal inspection, bilateral eye PERRL ENT: normal ENT inspection Neck: normal inspection Respiratory: normal inspection Cardiovascular #1: normal inspection Gastrointestinal: normal inspection Rectal: deferred Genitourinary: no vertebral tenderness Musculoskeletal: tender - paraspinal lumbar tenderness Neurologic: alert, oriented x3, responsive, motor strength/tone normal, sensory intact, speech normal Psychiatric: normal inspection Skin: no rash Lymphatic: normal inspection Medical Decision Making Diagnostic Impression: Primary Impression: Chronic pain Qualified Codes: G89.29 - Other chronic pain ER Course Hospital Course 33 yo F presents to ED c/o low back pain. h/o sciatica Differential diagnoses include: pyelonephritis, kidney stone, muscle strain, Lspine fracture Clinical course Patient placed on stretcher. After initial history, physical exam reveals female in no acute distress. There is paraspinal lumbar tenderness on the left. No flank pain. 5 out of 5 motor strength in lower extremities. No sensory deficit. I reviewed CURES; no recent narcotic prescriptions filled. Ordered Toradol, [place] here, lidoderm. Discussed findings with patient. Will discharge with Lidoderm patch, 3-day course of [place]. Safe for discharge for close outpatient follow-up. States that she will follow-up with pain management as directed. Diagnosis - back pain Stable and discharged to home with prescription for norco, lidoderm. Followup with PMD. Return to ED if symptoms recur or worsen Last Vital Signs Date Time Temp Pulse Resp B/P (MAP) Pulse Ox O2 Delivery O2 Flow Rate FiO2 01/22/19 10:52 98.4 84 20 137/95 99 Room Air Status: improved Disposition: HOME, SELF-CARE Condition: Stable Scripts Lidocaine Patch* (Lidoderm Patch*) 1 Each Adh..patch 1 PATCH TOPIC DAILY, #7 PATCH 0 Refills Patch(es) may remain in place for up to 12 hours in any 24-hour period. Prov: Reginald Orosco MD 01/22/19 Hydrocodone Bit/Acetaminophen 5-325* (NORCO 5-325*) 1 Each Tablet 1 TAB ORAL Q6H PRN for For Pain, #12 TAB 0 Refills Prov: Reginald Orosco MD 01/22/19 Referrals: [facility],REFERRING (PCP) Patient Instructions: Sciatica Reginald Orosco MD Jan 22, 2019 11:16
== END 2019-01-22 11:10 | disposition home or self-care (01) ==
LOC: EMR 10:34
DX: G89.29 Other chronic pain (principal); M54.5 Low back pain; J45.909 Unspecified asthma, uncomplicated; I10 Essential (primary) hypertension
CPT/HCPCS: 96372; 99283; J1885; J7512